=== PATIENT | male | born 1955 | race Caucasian/White ===

== ENCOUNTER 2020-01-16 14:25 | Emergency (ER) | payer MEDICARE, SELFPAY ==
[2020-01-16] VITALS (19 sets, daily range): BP systolic 119–140; BP diastolic 72–101; PULSE 51–63; RESP 11–22; TEMP 36.7; O2SAT 97–100
--- NOTE | ~2020-01-16 | XR_ITS ---
EXAMINATION: XR chest 2V 01/16/2020 14:41 INDICATION: Dizziness. PROCEDURE: 2 view chest COMPARISON: No prior studies for comparison. FINDINGS: The lungs are clear. The cardiomediastinal silhouette is within normal limits. There are no pleural effusions. There is no pneumothorax suspected. IMPRESSION: 1: NO ACUTE CARDIOPULMONARY DISEASE. Reviewed, dictated and finalized at location A.
--- NOTE | ~2020-01-16 | CT_ITS ---
EXAMINATION: CT BRAIN W/O DATE: 01/16/2020 14:52 INDICATION: Headache TECHNIQUE: Computed tomography (CT) of the head was performed without intravenous contrast. The dose- length product was 605.33 mGy-cm. The mA was adjusted according to patient size. Iterative reconstruc tion technique was employed. COMPARISON: No prior studies for comparison. FINDINGS: Normal brain parenchymal volume for age. Normal villegas-white differentiation. No acute intrac ranial hemorrhage, infarction, mass or mass effect. There are scattered mild periventricular and subcortical white matter changes, most likely related to small vessel ischemic disease (microangiopathy). No ventriculomegaly or midline shift. Midline sagittal images demonstrate a normal corpus callosum, c raniovertebral junction and sella turcica. Basilar cisterns are patent. Paranasal sinuses and mastoids are pneumatized. No depressed skull fractures. IMPRESSION: 1. No acute intracranial abnormality. 2: Chronic age-related findings. Reviewed, dictated and finalized at location A.
--- NOTE | 2020-01-16 14:27 | ECG_ITS ---
Measurements Intervals [place] Rate: 53 P: 21 CT: 144 QRS: 25 QRSD: 106 T: 27 QT: 432 QTc: 408 Interpretive Statements SINUS BRADYCARDIA CANNOT RULE OUT SEPTAL INFARCT, AGE INDETERMINATE ST ELEVATION IN ANTEROLAT/INF LEADS- PROBABLY EARLY REPOLARIZATION BASELINE ARTIFACT- I, III, AVF ABNORMAL ECG Electronically Signed On 01-16-2020 15:26:46 CDT by Jose King D.O.
[2020-01-16 14:40] LABS: Basophils Percent Auto 0.4 % (0.2-1.2); Eosinophils Absolute Auto 0.2 K/mm3 (0-0.3); Eosinophils Percent Auto 3.1 % (0-4.4); Hematocrit 44.3 % (42.0-52.0); Immature Granulocyte Absolute 0.01 K/mm3 (0.00-0.031); Immature Granulocyte Percent A 0.1 % (0-0.5); Lymphocytes Absolute Auto 3.25 K/mm3 (0.9-3.2); Lymphocytes Percent Auto 42.4 % (18.3-44.2); Mean Corpuscular HGB Conc 33.9 g/dl (32-36); Mean Corpuscular Hemoglobin 31.2 pg (26-34); Mean Corpuscular Volume 92.1 fl (80-100); Mean Platelet Volume 9.1 fl (7.4-10.4); Monocytes Absolute Auto 0.6 K/mm3 (0.1-0.6); Monocytes Percent Auto 8.2 % (2.6-8.5); Neutrophils Absolute Auto 3.5 K/mm3 (1.3-6.7); Neutrophils Percent Auto 45.8 % (45.5-73.1); Platelet Count Result 275 k/mm3 (150-375); Red Blood Count 4.81 M/mm3 (4.6-6.20); Red Cell Distribution Width 14.9 % (11.5-14.5); White Blood Count 7.7 K/mm3 (4.5-10.0)
--- NOTE | 2020-01-16 14:46 | ED.DIZZY ---
HPI - Dizziness General Chief Complaint: Dizziness Stated Complaint: dizziness Time Seen by Provider: 01/16/20 14:33 Source: patient Mode of arrival: ambulatory Limitations: no limitations History of Present Illness HPI Narrative: Patient is a 64-year-old male who presents to emergency department for evaluation of dizziness. Patient was working in the yard when the dizziness began causing him to have unsteady balance and gait. Patient notes that he has been having the symptoms on and off for the last several days. On arrival to emergency department patient notes that he is feeling better. Patient denies recent injury or trauma or illness on arrival patient resting comfortably in the room in no distress denying any pain. Related Data Allergies Allergy/AdvReac Type Severity Reaction Status Date / Time No Known Allergies Allergy Unverified 10/01/16 11:23 Review of Systems Review of Systems: All systems reviewed & are unremarkable except as noted in HPI and below PMFSH Family History Family History (Updated 01/01/17 @ 12:07 by DOCTOR UNKNOWN) Mother Patient's mother is in good health Sibling Patient's sister is in good health Patient's brother is in good health Family history of cardiovascular disease Father Acute myocardial infarction, Onset Age: 44 Social History Social History Smoking status: Never smoker Second hand tobacco smoke exposure: No Alcohol intake: never Course Course Emergency Course: Patient in the room at this time in no distress Consultations Consultation #1: Spoke with on-call primary care who will inform the primary care doctor of the patient and recommends that the patient follow-up on Saturday Date: 01/16/20 Time: 17:10 Vital Signs Vital signs: Vital Signs Temperature 98.1 F 01/16/20 14:28 Pulse Rate 59 L 01/16/20 14:28 Respiratory Rate 20 01/16/20 14:28 Blood Pressure 140/80 01/16/20 14:28 Pulse Oximetry 98 01/16/20 14:28 Temperature 98.1 F 01/16/20 14:28 Pulse Rate 52 L 01/16/20 16:01 Respiratory Rate 13 01/16/20 16:01 Blood Pressure 119/72 01/16/20 16:01 Pulse Oximetry 100 01/16/20 15:46 MDM - Dizziness MDM Narrative Medical decision making narrative: Patient's dizziness is without focal neurological deficits on exam. Subarachnoid hemorrhage is felt to be unlikey at this time. There is no history of fever, and neck is supple without meningismus, making meningitis unlikely. No traumatic history or signs of trauma on exam. NO ocular signs on exam and in history to suggest acute glaucoma. Patients dizziness is felt to be a reasonable candidate for outpatient evaluation. Patient notes that he feels fine and is requesting to be discharged patient's primary care was called and they are aware and will follow him in the clinic on Saturday Lab Data Result diagrams: 01/16/20 14:34 01/16/20 14:34 Labs: Lab Results 01/16/20 01/16/20 01/16/20 Range/Units 14:34 14:34 14:34 WBC 7.7 (4.5-10.0) K/mm3 RBC 4.81 (4.6-6.20) M/mm3 Hgb 15.0 (14.0-18.0) g/dL Hct 44.3 (42.0-52.0) % MCV 92.1 (80-100) fl MCH 31.2 (26-34) pg MCHC 33.9 (32-36) g/dl RDW 14.9 H (11.5-14.5) % Plt Count 275 (150-375) k/mm3 MPV 9.1 (7.4-10.4) fl Immature Gran % (Auto) 0.1 (0-0.5) % Neut % (Auto) 45.8 (45.5-73.1) % Lymph % (Auto) 42.4 (18.3-44.2) % [place] % (Auto) 8.2 (2.6-8.5) % Eos % (Auto) 3.1 (0-4.4) % Baso % (Auto) 0.4 (0.2-1.2) % Lymph # (Auto) 3.25 H (0.9-3.2) K/mm3 [place] # (Auto) 0.6 (0.1-0.6) K/mm3 Eos # (Auto) 0.2 (0-0.3) K/mm3 Baso # (Auto) 0.0 (0.0-0.1) K/mm3 Abs Immat Gran (auto) 0.01 (0.00-0.031) K/mm3 Absolute Neuts (auto) 3.5 (1.3-6.7) K/mm3 Absolute Nucleated RBC 0.0 (0.0-0.012) K/mm3 Nucleated RBC % 0.0 (0.0-0.2) % PT 12.0 (11.1-14.7) Seconds INR 0.9 APTT 32.8 (22.3-36.8) SECONDS So
[2020-01-16 14:50] LABS: INR 0.9
[2020-01-16 14:51] LABS: Partial Thromboplastin Time 32.8 SECONDS (22.3-36.8)
[2020-01-16 14:52] LABS: Blood Urea Nitrogen 17 mg/dL (9-20); Calcium 10.1 mg/dL (8.4-10.2); Carbon Dioxide 27 mmol/L (22-30); Chloride 106 mmol/L (98-107); Estimated CRCL calculation 57 ml/min; Estimated Glomerular Filt Rate > 60; Glucose 91 mg/dL (75-110); Potassium 4.3 mmol/L (3.4-5.0); Sodium 139 mmol/L (137-145)
[2020-01-16] MEDS: ASPIRIN 81 MG CHEWABLE TABLET 324 MG PO (15:03)
[2020-01-16 15:04] LABS: Troponin I < 0.012 ng/mL (0.000-0.034)
== END 2020-01-16 17:21 | disposition home or self-care (01) ==
PROVIDERS: Emergency Provider Emergency Medicine; PCP Family Medicine
DX: R42 Dizziness and giddiness (principal); R00.1 Bradycardia, unspecified; R94.31 Abnormal electrocardiogram [ECG] [EKG]
CPT/HCPCS: 36415; 70450; 71046; 80048; 84484; 85025; 85610; 85730; 93005; 99284; A9270